=== PATIENT | male | born 1945 | race Caucasian/White ===

== ENCOUNTER → 2021-11-04 | Outpatient (CLI) | payer OTHER ==
[~2021-11-04] VITALS: Ht 188 cm; Wt 90.7 kg
[~2021-11-04] MED LIST: CHOLESTYRAMI239.4 GM PO; DAILY VALUE1 EAC1 PO; IRON236 MG PO; LEVOTHYROXINE175 MCG PO; LISINOPRIL10 MG PO; NORCO5 PO; VENTOLIN HFA INH8 GM INH; VITAMIN D31250 MCG PO; [UNRECOGNIZED DRUG - CODE] PO; morphine PO
[2021-11-04 09:09] LABS: HEMATOCRIT 37.6 % (42.0-52.0); HEMOGLOBIN 12.6 gm/dL (14.0-18.0); MCH 30.1 pg (26.0-34.0); MCHC 33.5 g/dL (28.0-37.0); MCV 89.8 fL (80.0-100.0); RBC 4.18 mil/uL (4.50-6.00)
[2021-11-04 09:13] LABS: URINE BILIRUBIN NEGATIVE (Negative); URINE BLOOD 2+ (Negative); URINE CLARITY CLEAR; URINE COLOR YELLOW; URINE GLUCOSE-RANDOM* NEGATIVE (Negative); URINE KETONES NEGATIVE (Negative); URINE LEUKOCYTES-REFLEX NEGATIVE (Negative); URINE NITRITE-REFLEX NEGATIVE (Negative); URINE PROTEIN (DIPSTICK) NEGATIVE (Negative); URINE SPECIFIC GRAVITY 1.025 (1.005-1.035); URINE UROBILINOGEN 0.2 E.U./dl (0.2-1.0)
[2021-11-04 09:21] LABS: ALBUMIN 4.1 g/dL (3.4-5.0); CALCIUM 8.8 mg/dL (8.5-10.1); CREATININE 1.2 mg/dL (0.7-1.3)
[2021-11-04 09:30] LABS: SQUAMOUS 0-3 Few /LPF (0-3)
[2021-11-04 09:32] LABS: URINE RBC 3-10 Few /HPF (NONE SEEN)
[2021-11-04 09:34] LABS: CASTS None Seen /LPF (None Seen)
[2021-11-04 09:35] LABS: BACTERIA-REFLEX 1-9 Few /HPF (None Seen); CRYSTALS None Seen /LPF (None Seen); URINE WBC-REFLEX None Seen /HPF (0-5)
[2021-11-04 09:44] LABS: INR 0.9; PROTIME 9.3 Seconds (9.3-11.4)
--- NOTE | 2021-11-04 12:37 | EKG ---
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
== END ==
LOC: PAC 08:25
PROVIDERS: ATTEND Orthopaedic Surgery
DX: Z01.812 Encounter for preprocedural laboratory examination (principal); Z01.810 Encounter for preprocedural cardiovascular examination; M17.12 Unilateral primary osteoarthritis, left knee; I45.10 Unspecified right bundle-branch block

== ENCOUNTER 2021-11-15 10:04 | Observation (INO) | payer OTHER ==
[~2021-11-15] VITALS: Ht 182.9 cm; Wt 90.7 kg
[~2021-11-15 10:04] MED LIST changes: -NORCO5 PO; -morphine PO
[2021-11-15 11:30] VITALS: BP 140/72
[2021-11-15 16:45] VITALS: BP 159/88
[2021-11-15 17:10] VITALS: BP 156/81
[2021-11-15 20:13] VITALS: BP 138/77
--- NOTE | 2021-11-16 06:09 | NUR ---
Pt. rested quietly at intervals during the night when checked on during frequent rounds. Po pain meds given for c/o pain to left knee (see emar) with some relief noted. Pt. has been up to the bathroom with assistance of one,walker and gait belt. Dressing to left knee is intact.
[2021-11-16 08:30] VITALS: BP 104/65
[2021-11-16 10:45] VITALS: BP 113/67
--- NOTE | 2021-11-16 13:59 | NUR ---
Provider plus to issue walker for home.
[2021-11-17] MEDS ORDERED: NORCO5 PO (06:10)
[2021-11-17] MEDS ORDERED: morphine PO (06:11)
--- NOTE | 2021-11-17 14:45 | O ---
[facility] [place] [address] OPERATIVE REPORT Name: GRICEL GRAVES Room #: 437-P [facility] Pavel Levine#: [id number] Admission: 11/15/21 Attend Phys: Espinoza Phoenix MD Discharge: 11/16/21 Date of : 47 Report #: [id number] THIS REPORT FOR: cc: Zhou Howe MD, Nicholas MD Abraham,Espinoza Romero MD ~ DATE OF SERVICE: 11/15/2021 PREOPERATIVE DIAGNOSIS: Left knee valgus osteoarthritis. POSTOPERATIVE DIAGNOSIS: Left knee valgus osteoarthritis. PROCEDURE: Left total knee arthroplasty using Navio robotic assistance. SURGEON: Espinoza Phoenix MD LEAD FRONT DESK AGENT: Jeannine Denise PA-C. INDICATION FOR LEAD FRONT DESK AGENT: Throughout the case, extensive retraction, manipulation of the knee was required. This was afforded to me by my visitor service assistant. ANESTHESIA: LMA with adductor canal block. IMPLANTS: A [employer] size 7 Journey II BCS cobalt chrome femur, size 6 tibia, size 9 constrained polyethylene and a size 35 patella. TOURNIQUET TIME: 60 minutes. ESTIMATED BLOOD LOSS: 25 mL COMPLICATIONS: None. SPECIMENS: None. CONDITION UPON LEAVING THE OR: Stable. INDICATIONS FOR PROCEDURE: The patient is a 76-year-old gentleman with severe left knee valgus arthritis. He had failed conservative measures for this and after discussion with him, he elected for left total knee arthroplasty. DESCRIPTION OF PROCEDURE: Risks, benefits, alternatives, complications were discussed in detail with the patient including but not limited to risk of anesthesia, risk of damage to nerves, arteries and blood vessels, risk for infection, bleeding, risk for continued knee pain, need for reoperation. Informed consent was obtained from the patient. The left knee was appropriately marked in the preoperative holding area. IV Ancef was given for preoperative [facility] [address] [place] [address] OPERATIVE REPORT Name: STARGRICEL Room #: 437-P DIS Pavel Levine#: [id number] Admission: 11/15/21 Attend Phys: Espinoza Phoenix MD Discharge: 11/16/21 Date of : 47 Report #: [id number] antibiotics. Adductor canal block was placed by anesthesia. He was brought to the operating room and placed in the supine position on the operating table. LMA anesthesia was induced without complication. Tourniquet was placed on the left thigh. Left lower extremity was prepped and draped in normal sterile fashion. Timeout was performed properly identifying the patient and procedure as well as the instrumentation and implants. All in the operating room in agreement. Left lower extremity was exsanguinated and tourniquet inflated. Tourniquet time was 60 minutes. Standard midline approach to the knee was made with 10 blade through the skin. Dissection was taken down sharply to the fascia and deep flaps were developed medially and laterally. Fresh 10 blade was used to make a medial parapatellar arthrotomy and the knee was inspected. There was severe lateral compartment osteoarthritis with moderate medial and patellofemoral compartment osteoarthritis. ACL and PCL were removed sharply. Reference pins were placed in the femur and the tibia. The knee was then digitally mapped using the Jet robotic system. Intraoperative plan was made and sized to size 7 femur, size 6 tibia and a 10 spacer. After acceptance of the intraoperative plan, the distal femoral cut was made with Navio bur. Distal femoral cutting block was pinned in place and chamfer cuts were made. Attention was turned to the tibia. Remainder of the menisci removed with Bovie cautery. Tibial resection guide was pinned in place using Navio for placement and tibial resection was made. Flexion and extension gaps were checked and found to have good balance laterally in flexion and extension. Medially, he did open up 2-3 mm and this was not surprising given his underlying valgus deformity. It was felt we can make up for this with a constrained implant. Tibia was sized, found to be a size 6. A size 6 tibial trial was placed, pinned and punched. A size 7 femoral trial was placed and box cut was made. This was then trialed with a size 9 and then a size 10 polyethylene. The size 10 polyethylene demonstrated 1 mm laxity laterally throughout range of motion of the knee. Medially, he did demonstrate up to 3-4 mm laxity. Again, we felt we can make up for this with a constrained implant, 9 mm of bone was resected from the posterior surface of the patella and a size 35 patellar trial button was placed. Knee was taken through range of motion, found to be stable, found to have good patellar tracking. Trial components were removed. Bone ends were thoroughly irrigated with normal saline. A final size 6 tibia, size 7 Journey II BCS cobalt chrome femur and a size 35 patella were cemented in place using standard cementation techniques. While the cement cured, a periarticular injection consisting of morphine, ropivacaine, epinephrine, Toradol was placed around the knee joint capsule. After the cement cured, the tourniquet was deflated. Hemostasis was obtained with Bovie cautery. A final size 10 constrained polyethylene was placed. A gram of vancomycin was placed deep in the joint. The fascia was closed with 0 Vicryl. Skin was closed with 2-0 Vicryl. Skin staple and a DAWIT dressing was [address] [address] OPERATIVE REPORT Name: GRICEL GRAVES Room #: 437-P [facility] Pavel Levine#: [id number] Admission: 11/15/21 Attend Phys: Espinoza Phoenix MD Discharge: 11/16/21 Date of : 47 Report #: [id number] applied. The patient tolerated this procedure well and went to recovery room under care of anesthesia postoperatively. <ELECTRONICALLY SIGNED> By: Espinoza Phoenix MD 11/17/21 1445 1431 1716 Espinoza Phoenix MD /nt
== END 2021-11-16 14:45 | disposition home or self-care (01) ==
LOC: OR → 4S 16:44 → OR 11-16 12:53 → 4S 11-16 14:45 → OR 11-16 14:55
PROVIDERS: ADMIT Orthopaedic Surgery; ATTEND Orthopaedic Surgery
DX: M17.12 Unilateral primary osteoarthritis, left knee (principal); Z20.822 Contact with and (suspected) exposure to COVID-19; Z88.1 Allergy status to other antibiotic agents
CPT/HCPCS: 50010; 50101; 50415; 50954; 51130; 51225; 51412; 53000; 53078; 56527; 56528; 57095; 57103; 57110; 57127; 57180; 58239; 59024; 62110; 62900; 64043; 65060; 70005

== ENCOUNTER 2021-11-17 06:01 | Emergency (ER) | payer OTHER ==
[~2021-11-17] VITALS: Ht 188 cm; Wt 90.7 kg
--- NOTE | ~2021-11-17 | EMS ---
[address] [address] EMS Patient Care Report Name: GRICEL GRAVES Room #: REG NATASHA Levine#: [id number] Admission: 11/17/21 Attend Phys: Discharge: Date of : 47 Report #: [id number] THIS REPORT FOR: //name// Report Transmitted: 11/17/2021 05:55 EMS Care Summary [facility] MED-ACT Incident [id number] @ 11/17/2021 05:23 Incident Location [address] [place] [address] Patient GRICEL GRAVES Male, 76 Years 1945 Patient Address [address] [place] [address] Patient History Asthma,Hypothyroidism,Knee Replacement, Patient Allergies Doxycycline,Tetracycline, Patient Medications Levothyroxine, Morphine, Chief Complaint knee pain Disposition Transported No Lights/[place] Reason Sick Person Transported To [facility] Narrative Upon EMS arrival pt was walking through his house. Pt was alert and oriented. Pt sates that he had a knee replacement two days ago. pt states that he was sent home yesterday and wasnt able to sleep last night. Pt states that he has pain in the knee and his pain meds arent helping. Pt was worried he would fall [address] [address] EMS Patient Care Report Name: GRICEL GRAVES Room #: REG ER Abner#: [id number] Admission: 11/17/21 Attend Phys: Discharge: Date of : 47 Report #: [id number] because he is so tired. Unable to completely examine the leg due to the dressing being on the area. Pt was able to walk through his house and father belongings and was able to take a couple steps to the cot. Pt laid on the cot and was secured by all straps. Pt transported to [facility] ED at his request. Pts vitals stable. Pt was taken to room 9 and was moved to the ED bed by EMS and ED staff. Report given to RN Initial Vitals @05:55P: 96,R: 16,BP: 128/77,SpO2: 99, @05:43P: 106,R: 16,BP: 93/53,SpO2: 98, @05:49P: 103,R: 16,BP: 152/59,Pain: 10/10,GCS: 15,Temp: 98.4F,SpO2: 97,Revised Trauma: 12, Impression Extremity Pain Procedures @05:40 Surgical Mask on Patient Response: Unchanged Timeline 05:22,Call Received 05:22,Psap Call 05:23,Dispatched 05:25,En Route 05:29,On Scene 05:31,At Patient 05:40,Surgical Mask on Patient,Response: Unchanged 05:41,Depart Scene 05:43,BP: 93/53 M,PULSE: 106,RR: 16 R,SPO2: 98 Ox,ETCO2: ,BG: ,PAIN: ,GCS: , 05:49,BP: 152/59 M,PULSE: 103,RR: 16 R,SPO2: 97 Ox,ETCO2: ,BG: ,PAIN: 10,GCS: 15, 05:55,BP: 128/77 M,PULSE: 96,RR: 16 R,SPO2: 99 Ox,ETCO2: ,BG: ,PAIN: ,GCS: , 05:56,At Destination 06:13,Call Closed Disclaimer v1.1 Copyright 2021 [employer] This EMS Care Summary contains data elements from the applicable legal record (which may be displayed differently). It is designed to provide pertinent information for the following purposes: continuity of care, clinical quality, and state data reporting. The complete legal record is available to ED staff and administrators of the receiving hospital in [employer]'s Patient Tracker. All data is provided "as is."
[2021-11-17] MEDS ORDERED: NORCO5 PO (06:10)
[2021-11-17] MEDS ORDERED: morphine PO (06:11)
[2021-11-17 07:04] LABS: ABSOLUTE NEUTROPHILS 6.4 thou/uL (1.4-8.2); BASOPHILS 0.1 % (0.0-2.0); EOSINOPHILS 0.7 % (0.0-3.0); HEMATOCRIT 25.5 % (42.0-52.0); HEMOGLOBIN 8.4 gm/dL (14.0-18.0); LYMPHOCYTES 11.5 % (24.0-44.0); MCH 30.1 pg (26.0-34.0); MCHC 32.8 g/dL (28.0-37.0); MCV 91.7 fL (80.0-100.0); MONOCYTES 12.7 % (1.0-8.0); PLATELET COUNT 186 thou/uL (150-400); RBC 2.78 mil/uL (4.50-6.00); RDW 14.2 % (10.5-14.5); WBC 8.6 thou/uL (4.0-11.0)
[2021-11-17 07:23] LABS: CALCIUM 7.8 mg/dL (8.5-10.1); CREATININE 1.3 mg/dL (0.7-1.3); POTASSIUM 3.8 mmol/L (3.5-5.1)
[2021-11-17 07:28] LABS: TOTAL BILIRUBIN 0.7 mg/dL (0.2-1.0); TOTAL PROTEIN 5.7 g/dL (6.4-8.2)
[2021-11-17 10:05] LABS: URINE BILIRUBIN NEGATIVE (Negative); URINE BLOOD TRACE (Negative); URINE CLARITY CLEAR; URINE COLOR YELLOW; URINE GLUCOSE-RANDOM* NEGATIVE (Negative); URINE KETONES NEGATIVE (Negative); URINE LEUKOCYTES-REFLEX NEGATIVE (Negative); URINE NITRITE-REFLEX NEGATIVE (Negative); URINE PROTEIN (DIPSTICK) NEGATIVE (Negative); URINE SPECIFIC GRAVITY >= 1.030 (1.005-1.035); URINE UROBILINOGEN 0.2 E.U./dl (0.2-1.0)
[2021-11-17 10:17] VITALS: BP 112/68
== END 2021-11-17 10:42 | disposition home or self-care (01) ==
LOC: ER 06:01
PROVIDERS: Emergency Medicine
DX: M25.562 Pain in left knee (principal); Z20.822 Contact with and (suspected) exposure to COVID-19; I10 Essential (primary) hypertension; E78.5 Hyperlipidemia, unspecified; J45.909 Unspecified asthma, uncomplicated; Z89.512 Acquired absence of left leg below knee; Z90.89 Acquired absence of other organs; Z90.49 Acquired absence of other specified parts of digestive tract; Z79.899 Other long term (current) drug therapy; Z88.8 Allergy status to other drugs, medicaments and biological substances